=== PATIENT | female | born 1985 | race African-American/Black ===

== ENCOUNTER 2018-04-21 12:49 | Emergency (ER) | payer SELFPAY ==
[~2018-04-21] VITALS: Ht 165.1 cm; Wt 73.0 kg
[2018-04-21 13:09] VITALS: BP 113/69
== END 2018-04-21 14:52 | disposition left against medical advice (07) ==
LOC: ER 12:49
DX: Z53.21 Procedure and treatment not carried out due to patient leaving prior to being seen by health care provider (principal)